=== PATIENT | female | born 1965 | race Caucasian/White ===

== ENCOUNTER 2017-11-18 15:41 | Emergency (ER) | payer OTHER ==
[~2017-11-18] VITALS: Ht 154.9 cm; Wt 67.9 kg
[~2017-11-18 15:41] MED LIST: ARIPIPRAZOLE10 MG PO; ESCITALOPRAM OX10 MG PO; LEXAPRO10 MG PO; NOHOMEMEDS; TYLENOL WITH C1 EACH PO
[2017-11-18] MEDS ORDERED: LEXAPRO10 MG PO (16:45)
[2017-11-18 17:03] VITALS: BP 123/69
== END 2017-11-18 17:06 | disposition home or self-care (01) ==
LOC: EME 15:41
DX: Z76.0 Encounter for issue of repeat prescription (principal); Z87.820 Personal history of traumatic brain injury
CPT/HCPCS: 99281; 99283

== ENCOUNTER 2017-12-04 10:01 | Emergency (ER) | payer OTHER ==
[~2017-12-04] VITALS: Ht 160 cm; Wt 67.2 kg
[2017-12-04] MEDS ORDERED: LEXAPRO10 MG PO (11:16)
[2017-12-04] MEDS ORDERED: ABILIFY10 MG PO (11:16)
[2017-12-04 11:30] VITALS: BP 102/69
== END 2017-12-04 11:33 | disposition home or self-care (01) ==
LOC: EME 10:01
DX: F32.9 Major depressive disorder, single episode, unspecified (principal); F41.9 Anxiety disorder, unspecified; Z76.0 Encounter for issue of repeat prescription
CPT/HCPCS: 99281; 99283

== ENCOUNTER 2017-12-05 16:24 | Emergency (ER) | payer OTHER ==
[~2017-12-05] VITALS: Ht 165.1 cm; Wt 59.0 kg
[~2017-12-05 16:24] MED LIST changes: +ABILIFY10 MG PO
[2017-12-05 17:38] VITALS: BP 113/66
== END 2017-12-05 17:39 | disposition home or self-care (01) ==
LOC: EME 16:24
DX: S93.402A Sprain of unspecified ligament of left ankle, initial encounter (principal); W18.40XA Slipping, tripping and stumbling without falling, unspecified, initial encounter; Y93.01 Activity, walking, marching and hiking; Y92.007 Garden or yard of unspecified non-institutional (private) residence as the place of occurrence of the external cause; F17.200 Nicotine dependence, unspecified, uncomplicated; Z87.820 Personal history of traumatic brain injury
CPT/HCPCS: 73610; 99281; 99284